=== PATIENT | female | born 1955 | race Caucasian/White ===

== ENCOUNTER 2016-10-20 11:54 | Emergency (ER) | payer MEDICARE, MEDICAID ==
[~2016-10-20 11:54] MED LIST: Sodium Chloride 0.9% 100 ML BAG ONE
[2016-10-20] MEDS ORDERED: Sulfameth/Trimethoprim DS 800-160mg TAB ONE (13:36)
[2016-10-20] MEDS ORDERED: cefTRIAXone\\ROCEPHIN 1 GM VIAL ONE (13:36)
[2016-10-20] MEDS ORDERED: Cephalexin 500 MG CAP ONE (13:36)
[2016-10-20] MEDS ORDERED: Naproxen 500 MG TAB ONE (13:36)
[2016-10-20] MEDS ORDERED: Ketorolac Tromethamine 30 MG/ML VIAL ONE (13:36)
[2016-10-20] MEDS ORDERED: Ondansetron HCl/PF 4 MG/2 ML Vial ONE (13:36)
[2016-10-20] MEDS ORDERED: diphenhydrAMINE HCl 50 MG/ML 1 ML VIAL ONE (13:36)
[2016-10-20] MEDS ORDERED: Fluconazole 100 MG TAB ONE (14:58)
== END 2016-10-20 15:00 | disposition home or self-care (01) ==
LOC: MADERS 11:54
DX: G43.909 Migraine, unspecified, not intractable, without status migrainosus (principal); L03.031 Cellulitis of right toe; Z87.891 Personal history of nicotine dependence; Z86.19 Personal history of other infectious and parasitic diseases; Z79.899 Other long term (current) drug therapy
CPT/HCPCS: 96365; 96375; J0696; J1200; J1885; J2270; J2405; J7050

== ENCOUNTER 2019-02-19 08:30 | Emergency (ER) | payer MEDICARE, MEDICAID ==
[2019-02-19] MEDS ORDERED: Iopamidol 370 76% 100 ML VIAL ONE (09:02)
[2019-02-19] MEDS ORDERED: Morphine 4 MG/ML VIAL ONE ×2 (09:34→10:52)
[2019-02-19 09:45] LABS: INR-International Normal Ratio 0.9; Prothrombin Time 12.2 SEC (12.0-14.7)
[2019-02-19 09:51] LABS: ALT (SGPT) 31 U/L (8-55); AST (SGOT) 35 U/L (5-34); Albumin 4.3 g/dL (3.4-4.8); Alkaline Phosphatase 86 U/L (40-150); Anion Gap 14 mmol/L (10-20); BUN (Urea Nitrogen) 12 mg/dL (9.8-20.1); Bilirubin, Total 0.4 mg/dL (0.2-1.2); Calc. Creatinine Clearance 0 mL/min (70-130); Calcium 9.3 mg/dL (7.8-10.44); Carbon Dioxide 28 mmol/L (23-31); Chloride 106 mmol/L (98-107); Estimated GFR-MDRD 87; Globulin 2.7 g/dL (2.4-3.5); Glucose 94 mg/dL (80-115); Potassium 4.2 mmol/L (3.5-5.1); Sodium 144 mmol/L (136-145)
[2019-02-19 09:53] LABS: #Eosinphils 0.1 thou/uL (0.0-0.7); #Lymphocytes 1.2 thou/uL (1.20-3.40); #Monocytes 0.3 thou/uL (0.11-0.59); #Neutrophils 2.7 thou/uL (1.40-6.50); %Basophils 1.1 % (0.0-1.0); %Eosinophils 1.3 % (0.0-10.0); %Lymphocytes 28.1 % (21.0-51.0); %Monocytes 7.4 % (0.0-10.0); %Neutrophils 62.1 % (42.0-75.0); Hemoglobin 13.9 g/dL (12.0-16.0); Mean Corpuscular HGB CONC 33.5 g/dL (32.0-36.0); Mean Corpuscular Hemoglobin 31.2 pg (27.0-31.0); Mean Corpuscular Volume 93.1 fL (78.0-98.0); Mean Platelet Volume 7.6 fL (7.4-10.4); Platelet Count 115 thou/uL (130-400); RBC Distribution Width 11.6 % (11.5-14.5); Red Blood Cell (RBC) Count 4.44 mill/uL (4.20-5.40); White Blood Cell (WBC) Count 4.3 thou/uL (4.8-10.8)
[2019-02-19 10:00] LABS: Platelet Morphology Comment Appears Decreased
--- NOTE | 2019-02-19 10:34 | CT ---
CT BRAIN WITHOUT CONTRAST: HISTORY:Fall backwards hitting head without loss of consciousness. Headache COMPARISON:None FINDINGS: No evidence of acute infarct, hemorrhage, midline shift or abnormal extra-axial fluid collections is seen. The ventricular size is appropriate and the basilar cisterns are patent. The bony calvarium is intact. There is a scalp contusion in the left posterior parietal region The visualized paranasal sinuses and mastoid air cells are well aerated. There are focal lucencies in the right hemicranium. These should be evaluated with a bone scan to exc lude metastatic disease. IMPRESSION: No CT evidence of acute intracranial process.
--- NOTE | 2019-02-19 10:36 | CT ---
CT Cervical Spine WO Con History: Fall. Hit head. No loss of consciousness. Comparison: None. Findings: Moderate narrowing of the temporal ventricular joints. ACDF hardware at C5-C7. Moderate deg enerative disc space narrowing at C4/C5 with circumferential disc osteophyte complex. 2 mm C3 over C4 degenerative anterolisthesis. Flexible condyles are intact. The odontoid process is intact. Lung apices are clear. Paraspinal soft tissues are unremarkable. Impression: No acute fracture or malalignment of the cervical spine.
--- NOTE | 2019-02-19 10:52 | CT ---
CT Abdomen Pelvis Trauma History: Trauma. Fell backwards. Comparison: CT abdomen July 2017 Findings: Lung bases are clear. No pericardial effusion. No free intraperitoneal gas or fluid. No dilated loops of large or small bowel. Multiple distal esoph ageal and less curvature gastric varices. Spleen is unremarkable. Liver is unremarkable. Mild ectasia of the distended gallbladder without injury. There is a complete burst fracture of the L1 vertebra with retropulsion of the posterior superior end plate of L1 9 mm narrowing the spinal canal. Near complete central height loss with a coronal oriented fracture through the mid vertebral body. This fracture is similar to the 2018 exam. There is a new superimposed compression deformity of the mid trabecula of L2 with minimal superior en dplate height loss. Moderate facet arthropathy lumbar spine on the right L3-L5. The lumbar transverse processes are intact. Osseous pelvis is intact. Aortic contour is nonaneurysmal. No evidence for acute aortic injury. Impression: 1. New trabecular compression fracture of L2 without significant vertebral body height loss. No retro pulsion. Small adjacent hematoma. 2. Similar appearance of the burst fracture of L1 with retropulsion. No further displacement. 3. No solid organ injury within the abdomen or pelvis.
== END 2019-02-19 11:57 | disposition home or self-care (01) ==
LOC: MADERS 08:30
DX: S32.029A Unspecified fracture of second lumbar vertebra, initial encounter for closed fracture (principal); S00.03XA Contusion of scalp, initial encounter; G43.909 Migraine, unspecified, not intractable, without status migrainosus; Z87.891 Personal history of nicotine dependence; Z79.899 Other long term (current) drug therapy; W18.30XA Fall on same level, unspecified, initial encounter
CPT/HCPCS: 70450; 72125; 74177; 80053; 85025; 85610; 96374; 96376; J2270; Q9967

== ENCOUNTER 2019-09-28 23:28 | Emergency (ER) | payer MEDICARE, MEDICAID ==
[2019-09-29] MEDS ORDERED: HYDROcodone/Acetaminophen 10/325 mg Tablet ONE (00:09)
== END 2019-09-29 00:17 | disposition home or self-care (01) ==
LOC: MADERS 23:28
DX: M54.5 Low back pain (principal); G89.29 Other chronic pain; E78.00 Pure hypercholesterolemia, unspecified; E78.5 Hyperlipidemia, unspecified; K21.9 Gastro-esophageal reflux disease without esophagitis; Z86.73 Personal history of transient ischemic attack (TIA), and cerebral infarction without residual deficits; Z87.891 Personal history of nicotine dependence; Z79.899 Other long term (current) drug therapy
CPT/HCPCS: 99283

== ENCOUNTER 2020-10-30 00:35 | Emergency (ER) | payer MEDICARE, MEDICAID ==
[2020-10-30] MEDS ORDERED: Iopamidol 370 76% 100 ML VIAL IV ONE (00:36)
[2020-10-30] MEDS ORDERED: Ondansetron PF 4 MG/2 ML Vial ONE (01:07)
[2020-10-30 01:16] LABS: #Basophils 0.1 thou/uL (0.0-0.2); #Eosinphils 0.1 thou/uL (0.0-0.7); #Lymphocytes 1.8 thou/uL (1.20-3.40); #Monocytes 0.7 thou/uL (0.11-0.59); #Neutrophils 5.3 thou/uL (1.40-6.50); %Lymphocytes 22.2 % (21.0-51.0); %Neutrophils 66.9 % (42.0-75.0); Hemoglobin 14.2 g/dL (12.0-16.0); Mean Corpuscular HGB CONC 32.5 g/dL (32.0-36.0); Mean Corpuscular Hemoglobin 32.3 pg (27.0-31.0); Mean Corpuscular Volume 99.5 fL (78.0-98.0); Mean Platelet Volume 7.5 fL (7.4-10.4); Platelet Count 147 thou/uL (130-400)
[2020-10-30] MEDS ORDERED: Morphine 4 MG/ML VIAL ONE (01:29)
[2020-10-30 01:44] LABS: ALT (SGPT) 33 U/L (8-55); AST (SGOT) 29 U/L (5-34); Albumin 3.9 g/dL (3.4-4.8); Alkaline Phosphatase 89 U/L (40-110); Anion Gap 14 mmol/L (10-20); BUN (Urea Nitrogen) 19 mg/dL (9.8-20.1); Bilirubin, Total 0.5 mg/dL (0.2-1.2); Calc. Creatinine Clearance 0 mL/min (70-130); Calcium 8.8 mg/dL (7.8-10.44); Carbon Dioxide 25 mmol/L (23-31); Chloride 105 mmol/L (98-107); Globulin 2.6 g/dL (2.4-3.5); Glucose 120 mg/dL (80-115); Lipase 15 U/L (8-78); Potassium 3.8 mmol/L (3.5-5.1); Protein, Total 6.5 g/dL (5.8-8.1); Sodium 140 mmol/L (136-145)
[2020-10-30 01:46] LABS: Bilirubin Negative (Negative); Blood, Urine Large (Negative); Clarity Cloudy (Clear); Glucose, Urine (Dipstick) Negative (Negative); Ketone, Urine Negative (Negative); Leukocyte Negative (Negative); Nitrite Negative (Negative); Protein, Urine (Dipstick) Negative (Neg-Trace); Specific Gravity, Urine 1.025 (1.005-1.030); Urobilinogen 0.2 mg/dL (Less than 2)
[2020-10-30 01:50] LABS: RBC/HPF Greater than 50 HPF (0-3); WBC/HPF 0-3 HPF (0-3)
[2020-10-30 01:51] LABS: Bacteria/HPF Rare-Few HPF (None Seen); Mucous/LPF 2+ LPF (<2+)
[2020-10-30] MEDS ORDERED: Ketorolac Tromethamine 30 MG/ML VIAL ONE (02:58)
[2020-10-30] MEDS ORDERED: Tamsulosin HCl 0.4 MG CAP ONE (02:58)
[2020-10-30] MEDS ORDERED: Prochlorperazine 10 MG/2 ML VIAL ONE (02:58)
[2020-10-30] MEDS ORDERED: Sodium Chloride 0.9% 500 ML BAG ONE (07:00)
== END 2020-10-30 03:39 | disposition home or self-care (01) ==
LOC: MADERS 00:35
DX: N13.2 Hydronephrosis with renal and ureteral calculous obstruction (principal); E78.5 Hyperlipidemia, unspecified; E78.00 Pure hypercholesterolemia, unspecified; K21.9 Gastro-esophageal reflux disease without esophagitis; Z86.718 Personal history of other venous thrombosis and embolism; Z87.891 Personal history of nicotine dependence
CPT/HCPCS: 74177; 80053; 81003; 81015; 83605; 83690; 85025; 96374; 96375; J0780; J1885; J2270; J2405; J7030; Q9967